=== PATIENT | female | born 1990 | race Caucasian/White ===

== ENCOUNTER 2021-11-03 10:18 | Emergency (ER) | payer OTHER ==
[2021-11-03 11:03] VITALS: BMI 26.0
[2021-11-03] MEDS ORDERED: ACETAMINOPHEN 500 MG TABLET (FP) PO ONE (12:03)
[2021-11-03] MEDS ORDERED: ACETAMINOPHEN 500 MG TABLET (FP) ONE (12:45)
[2021-11-03 15:23] VITALS: BP 120/74; PULSE 98; TEMP 97.9
== END 2021-11-03 15:23 | disposition home or self-care (01) ==
LOC: JER 10:18
DX: U07.1 COVID-19 (principal)
CPT/HCPCS: 0241U-QW; 71046-TC-FY; 87651; 99283-25